=== PATIENT | female | born 1980 | race Caucasian/White ===

== ENCOUNTER → 2018-08-12 | Outpatient (CLI) | payer OTHER ==
[~2018-08-12] MED LIST: ACET500 PO; ACID REFLUX MED; ALBU90OI INH; AMOX500 PO; AMOX875; AMOX875 PO; AZIT250 PO; AZIT500 PO; Adipex-P37.5 MG PO; BLOOD PRESSURE MED; BUPR150ER PO; Bactrim 400-801 EACH PO; CARV3.125 PO; CEPH250A; CEPH500 PO; CIME300; CITA20 PO; CLIN300 PO; CODGUAEL PO; CYCL10 PO; ERGO400 PO; ERYT.5TO OU; ESOM20; Flonase 0.05% N16 GM; GERD MED; GLYCAS PR; HYDACE5 PO; IBUP800 PO; LIDO2TG30 TOP; MELA3 PO; NAPR375 PO; Norco 5-325 Ta1 EACH PO; OXYACE5T PO; Omeprazole20 M1 PO; PANT40 PO; PHENA200 PO; POLY17UD PO; PROM25 PO; PSEU120ER PO; Pyridium100 MG PO; RXAMOX500 PO; RXHYDACE PO; RXOXYACE PO; SENNP; SUDAFED 12-HOU120 M1 PO; SULTRIDS PO; TOBR.3OPSO OP; Ultram50 MG PO; Zithromax250 MG PO
[2018-08-12 18:14] LABS: Appearance, Urine Hazy (Clear); Bilirubin, Urine Neg (Neg); Blood, Urine 1+ (Neg); Color, Urine Yellow (P-Yellow); Glucose Qualitative, Urine Neg (Neg); Ketones, Urine Neg (Neg); Leukocyte Esterase, Urine Neg (Neg); Nitrite, Urine Neg (Neg); Protein, Urine Neg (Neg); Specific Gravity, Urine 1.015 (1.003-1.022); Urobilinogen, Urine NORM (Normal)
[2018-08-12 18:33] LABS: Bacteria Mod /hpf; Squamous Epithelial Cells Many /hpf (Few); White Blood Cells, Urine 0-2 /hpf (0-5)
== END | disposition home or self-care (01) ==
LOC: LAB 17:35 → LAB SHORT 17:35
PROVIDERS: Nurse Practitioner Primary Care
DX: M54.5 Low back pain (principal)
CPT/HCPCS: 81001; 87086

== ENCOUNTER → 2018-10-21 | Outpatient (CLI) | payer OTHER ==
[2018-10-21 18:03] LABS: Bilirubin, Urine Neg (Neg); Blood, Urine Neg (Neg); Color, Urine Yellow (P-Yellow); Glucose Qualitative, Urine Neg (Neg); Ketones, Urine Neg (Neg); Leukocyte Esterase, Urine Neg (Neg); Nitrite, Urine Neg (Neg); Protein, Urine Neg (Neg); Urobilinogen, Urine NORM (Normal)
[2018-10-21 18:29] LABS: Appearance, Urine Clear (Clear)
== END ==
LOC: LAB 17:38 → LAB SHORT 17:38
PROVIDERS: Nurse Practitioner Family
DX: R39.15 Urgency of urination (principal)
CPT/HCPCS: 81003

== ENCOUNTER 2019-02-15 12:04 | Day surgery (SDC) | payer OTHER ==
[~2019-02-15] VITALS: Ht 157.5 cm; Wt 120.8 kg
[~2019-02-15 12:04] MED LIST changes: +CALCITRATE200 MG PO; +Vitamin D2000 UNIT PO
== END 2019-02-15 14:52 | disposition home or self-care (01) ==
LOC: ORSCSDS 12:04
DX: K21.9 Gastro-esophageal reflux disease without esophagitis (principal); Z01.818 Encounter for other preprocedural examination; K31.7 Polyp of stomach and duodenum; I10 Essential (primary) hypertension; F32.9 Major depressive disorder, single episode, unspecified; Z87.891 Personal history of nicotine dependence; E66.01 Morbid (severe) obesity due to excess calories; Z68.42 Body mass index [BMI] 45.0-49.9, adult; Z79.899 Other long term (current) drug therapy
CPT/HCPCS: 88305; J2704; J7120

== ENCOUNTER 2022-06-15 10:04 | Emergency (ER) | payer OTHER ==
[~2022-06-15] VITALS: Ht 154.9 cm; Wt 95.2 kg
[2022-06-15] MEDS ORDERED: Norco 5-325 Ta1 EACH PO (12:33)
== END 2022-06-15 12:44 | disposition home or self-care (01) ==
LOC: ER 10:04
DX: S06.0X1A Concussion with loss of consciousness of 30 minutes or less, initial encounter (principal); S70.02XA Contusion of left hip, initial encounter; S80.02XA Contusion of left knee, initial encounter; I10 Essential (primary) hypertension; W01.0XXA Fall on same level from slipping, tripping and stumbling without subsequent striking against object, initial encounter; Z88.0 Allergy status to penicillin; Z79.899 Other long term (current) drug therapy; Z87.891 Personal history of nicotine dependence
CPT/HCPCS: 70450; 73502; 73562-LT